=== PATIENT | male | born 1970 | race Caucasian/White ===

== ENCOUNTER 2021-11-29 07:50 | Day surgery (SDC) | payer BC ==
[2021-11-29] MEDS ORDERED: Lactated Ringers 1,000 ML IV SCH ×2 (08:15→08:30)
[2021-11-29] MEDS ORDERED: fentaNYL 100 MCG/2 ML SDV ONE (09:27)
[2021-11-29] MEDS ORDERED: Midazolam 1 MG/ML 2 ML SDV ONE (09:27)
[2021-11-29] MEDS ORDERED: Propofol 200 MG/20 ML SDV ONE (09:27)
== END 2021-11-29 12:25 | disposition home or self-care (01) ==
LOC: JP.SDS 07:50
PROVIDERS: ATTEND Family Medicine
DX: Z12.11 Encounter for screening for malignant neoplasm of colon (principal); D12.3 Benign neoplasm of transverse colon; K21.9 Gastro-esophageal reflux disease without esophagitis
CPT/HCPCS: 45380; 88305; J2250; J2704; J3010; J7120